=== PATIENT | female | born 1950 | race Caucasian/White ===

== ENCOUNTER 2017-01-25 16:00 | Inpatient (IN) ==
--- NOTE | 2017-01-25 16:53 | Emergency Department Note ---
Disposition Clinical Impression: Cellulitis Qualifiers: Site of cellulitis: extremity Site of cellulitis of extremity: lower extremity Laterality: left Qualified Code(s): L03.116 - Cellulitis of left lower limb UTI (urinary tract infection) Qualifiers: Urinary tract infection type: acute cystitis Hematuria presence: without hematuria Qualified Code(s): N30.00 - Acute cystitis without hematuria Disposition: Admitted As Inpatient Condition: Fair Referrals: Francoise Marcum CNP [Primary Care Provider] - Forms: ED Satisfaction Letter Weakness HPI - General Chief complaint: ED Weakness Stated complaint: WEAKNESS Source: patient Mode of arrival: EMS Limitations: no limitations Nursing Notes Reviewed: Yes Vital Signs Reviewed: Yes - History of Present Illness HPI Narrative: Patient presents to the ED complaining of generalized weakness and increased lower extremity swelling that began yesterday. Her legs are always swollen but seemed to be worse over the past 2 days. She also reports some redness and a splotchy red rash to her left leg. She denies any chest pain or shortness breath. No abdominal pain, nausea, vomiting, diarrhea or constipation. She reports urinary urgency but no frequency or dysuria. She has had a dry cough for the past 2 days as well as some sneezing and rhinorrhea which each of these to her allergies. No sore throat or nasal congestion. Orts chills but no fever noted at home. She is a non-insulin dependent diabetic. States her glucose was 152 at home this morning. She denies any recent travel, sick contacts or recent illness. Denies any tobacco, alcohol or drug use. Pain Scale: 5 - Related Data Home Medications Medication Instructions Recorded Confirmed Allopurinol [Zyloprim] 300 mg PO DAILY 09/30/16 01/25/17 Brimonidine Tartrate/Timolol 5 ml OP BID 09/30/16 01/25/17 [Combigan Eye Drops] Clotrimazole 1% CRM [Lotrimin 1%] 1 appl TP BID 09/30/16 01/25/17 Enalapril Maleate [Vasotec] 20 mg PO BID 09/30/16 01/25/17 Furosemide [Lasix] 40 mg PO BID 09/30/16 01/25/17 Latanoprost [Xalatan] 2.5 ml OP HS 09/30/16 01/25/17 Lovastatin [Altoprev] 40 mg PO DAILY 09/30/16 01/25/17 Metoprolol [Lopressor] 100 mg PO DAILY 09/30/16 01/25/17 Nystatin POWDER [Nystop] 1 appl TP TID 09/30/16 01/25/17 Potassium Chloride [K-Tab ER] 20 meq PO BID 09/30/16 01/25/17 Ranitidine HCl [Zantac] 300 mg PO DAILY 09/30/16 01/25/17 Vitamin B Complex 1 each PO DAILY 09/30/16 01/25/17 amLODIPine [Norvasc] 5 mg PO DAILY 09/30/16 01/25/17 glipiZIDE [Glucotrol] 5 mg PO BIDWM 09/30/16 01/25/17 Allergies Allergy/AdvReac Type Severity Reaction Status Date / Time No Known Allergies Allergy Verified 01/25/17 16:07 Constitutional: Reports: chills, weakness (generalized). Denies: fever, weight change Eyes: Denies: eye pain, eye discharge, vision change ENT ED: Denies: ear pain, throat pain, dental pain, hearing loss, epistaxis, congestion, dysphagia Cardiovascular: Reports: edema. Denies: chest pain, palpitations, dyspnea on exertion, syncope Respiratory: Reports: cough. Denies: dyspnea, wheezes, hemoptysis, stridor, sputum production Gastrointestinal: Denies: abdominal pain, nausea, vomiting, diarrhea, constipation, hematemesis, melena, hematochezia Genitourinary: Reports: as per HPI, urgency. Denies: dysuria, frequency, hematuria, discharge Musculoskeletal: Reports: as per HPI Integumentary: Reports: as per HPI, rash. Denies: abrasion, lesions Neurological: Denies: headache, weakness, numbness, paresthesias, confusion, abnormal gait, vertigo Psychiatric: Denies: anxiety, depression, suicidal thoughts, homicidal thoughts , auditory hallucinations, visual hallucinations Endocrine: Denies: fatigue Hematological/Lymphatic: Denies: easy bleeding, easy bruising Allergic/Immunologic: Denies: facial swelling, urticaria Past Medical History - Past Medical History Medical history: Reports: arthritis, diabetes, glaucoma, hyperlipidemia, hypertension Surgical history: Reports: appendectomy, cholecystectomy, hysterectomy Psychiatric history: Reports: other BUSINESS MANAGEMENT ANALYST history: Reports: no BUSINESS MANAGEMENT ANALYST history - Social History Smoking Status: Never smoker Smokeless Tobacco Status: No Alcohol use: Reports: none Drug use: Reports: none Physical Exam - General Limitations: no limitations General appearance: alert, in no apparent distress, obese - Head Head exam: atraumatic, normocephalic, normal inspection - Eye Eye exam: Present: normal appearance, PERRL, EOMI - ENT ENT exam: normal exam, normal oropharynx, mucous membranes moist - Neck Neck exam: Present: normal inspection, full ROM, trachea midline - Chest Chest inspection: Present: normal inspection, symmetric chest wall rise - Respiratory Respiratory exam: Present: normal lung sounds bilaterally - Cardiovascular Cardiovascular exam: Present: regular rate, normal rhythm, normal heart sounds - Abdominal Exam Abdominal exam: Present: soft, Non-Tender, normal bowel sounds. Absent: tenderness, distention, guarding, rebound, rigidity - Extremities Exam Extremities exam: Present: normal inspection, full ROM, pedal edema (2+ bilaterally to upper shins). Absent: tenderness - Expanded Lower Extremity Exam Hip/Pelvis exam: Present: normal inspection, full ROM Upper leg exam: Present: normal inspection, full ROM Knee exam: Present: normal inspection, full ROM Lower leg exam: Present: full ROM, swelling (bilaterally) Ankle exam: Present: normal inspection, full ROM Foot/toe exam: Present: normal inspection, full ROM Neurovascular/Tendon exam: Absent: motor deficit, sensory deficit, tendon deficit - Back Exam Back exam: Present: normal inspection, full ROM. Absent: tenderness, CVA tenderness (R), CVA tenderness (L) - Neurological Exam Neurological exam: Present: alert, oriented X3 - Skin Skin exam: Present: other - Expanded Skin Exam Type of lesion: Present: other Distribution: LLE (erythema, scattered small red macular rash, warmth) Course Course Narrative: Patient presents to the ED complaining of generalized weakness and increasing lower extremity edema over the past 2 days. She was febrile 100.1 on arrival. Remainder vitals were normal. Low suspicion for any diabetic complication given her a.m. glucose readings. She does have some lower extremity edema and takes Lasix on a daily basis. No history of heart disease but will check chest x-ray and labs, including BNP. EKG on arrival shows normal sinus rhythm. Regarding her legs she also has redness and warmth of the left lower extremity with a rash concerning for cellulitis. She will be given Tylenol for her low- grade fever. - Reevaluation(s) Reevaluation #1: Chest x-ray was normal. BMP was only minimally elevated. I do not feel this represents CHF but rather just worsening of her chronic lower extremity edema. Urinalysis shows evidence of a UTI. CBC shows leukocytosis with left shift. She is also slight bump in her creatinine. Given 2 sources of infection with leukocytosis and low-grade fever feel patient would benefit from admission for IV antibiotics given her comorbidities. Discussed all test results and plan for admission with the patient and her guardian and they are in agreement. I have spoken to the hospitalist, Dr. Pacheco, who has agreed to accept the patient. She will be started on IV antibiotics as well as gentle hydration. Vital Signs Temperature 100.1 F H 01/25/17 16:09 Pulse Rate 104 01/25/17 16:09 Respiratory Rate 16 01/25/17 16:09 Blood Pressure 136/85 01/25/17 16:09 O2 Sat by Pulse Oximetry 100 01/25/17 16:09 Temperature 101.2 F H 01/25/17 19:22 Pulse Rate 104 01/25/17 16:09 Respiratory Rate 16 01/25/17 16:09 Blood Pressure 136/85 01/25/17 16:09 O2 Sat by Pulse Oximetry 100 01/25/17 16:09 Oxygen Delivery Oxygen Delivery Room Air Weakness - Differential Diagnosis Differential Diagnosis: Likely: sepsis/infection - Medical Records Medical records reviewed: Yes I reviewed the patient's medical records. - Lab Data Lab results reviewed: Yes I reviewed the patient's lab results. Result diagrams: 01/25/17 18:15 01/25/17 18:15 Lab Results 01/25/17 01/25/17 01/25/17 Range/Units 17:00 18:15 18:15 WBC 14.3 H (4.3-11.1) K/mcL RBC 3.86 (3.82-4.97) M/mcL Hgb 11.3 L (11.5-15.4) g/dL Hct 34.4 L (35.3-44.9) % MCV 89.1 (83.0-100.0) fL MCH 29.3 (28.0-33.3) pg MCHC 32.8 (31.6-35.5) g/dL RDW 14.6 H (11.5-14.5) % Plt Count 262 (140-400) K/mcL MPV 9.8 (9.4-12.4) fL Immature Gran % 1.2 (0-4) % Seg Neutrophils % 78.4 % Lymphocytes % 14.3 % Monocytes % 5.7 % Eosinophils % 0.1 % Basophils % 0.3 % Neutrophils # 11.2 H (1.6-8.9) K/mcL Lymphocytes # 2.0 (0.6-4.6) K/mcL Monocytes # 0.8 (0.0-1.3) K/mcL Eosinophils # 0.0 (0.0-0.6) K/mcL Basophils # 0.0 (0.0-0.2) K/mcL Nucleated RBCs/100 WBC 0.1 H (0) /100 WBC VBG Lactic Acid (0.5-2.2) mmol/L Sodium 136 (136-145) mEq/L Potassium 4.1 (3.5-4.5) mEq/L Chloride 99 (98-109) mEq/L Carbon Dioxide 22 (19-29) mEq/L BUN 18 (7-20) mg/dL Creatinine 1.45 H (0.57-1.11) mg/dL Est GFR ( Amer) 44 L (> 60) Est GFR (Non-Af Amer) 36 L (> 60) BUN/Creatinine Ratio 12 (6-26) Glucose 133 H (70-99) mg/dL Calculated Osmolality 286 (280-300) Calcium 9.7 (8.6-10.8) mg/dL Total Bilirubin (0.2-1.2) mg/dL Direct Bilirubin (0.0-0.5) mg/dL Indirect Bilirubin (0.0-1.2) mg/dL AST (5-34) Units/L ALT (0-55) Units/L Alkaline Phosphatase (38-126) Units/L B-Natriuretic Peptide (0-100) pg/mL Serum Total Protein (6.0-8.3) g/dL Albumin (3.5-5.0) g/dL Globulin (2.4-3.5) g/dL Albumin/Globulin Ratio (1.1-2.2) Urine Color Yellow (Yellow) Urine Clarity Slightly Cloudy A (Clear) Urine pH 6.0 (5.0-8.0) pH Units Ur Specific [place] <= 1.005 L (1.010-1.025) Urine Protein 30 H (Neg-Trace) mg/dL Urine Glucose (UA) Normal (Normal) mg/dL Urine Ketones Negative (Negative) mg/dL Urine Blood Small H (Negative) Urine Nitrite Negative (Negative) Urine Bilirubin Negative (Negative) Urine Urobilinogen Normal (Normal) mg/dL Ur Leukocyte Esterase Moderate H (Negative) Urine Microscopic RBC 0-3 (0-3) per hpf Urine Microscopic WBC 15-30 H (0-3) per hpf Ur Squamous Epith Cells Few (None-Few) per lpf Ur Transition Epith Cell Few (None-Few) per hpf Urine Bacteria Many H (None-Few) per hpf Ur Culture Indicated? YES A (NO) 01/25/17 01/25/17 01/25/17 Range/Units 18:15 18:15 19:12 WBC (4.3-11.1) K/mcL RBC (3.82-4.97) M/mcL Hgb (11.5-15.4) g/dL Hct (35.3-44.9) % MCV (83.0-100.0) fL MCH (28.0-33.3) pg MCHC (31.6-35.5) g/dL RDW (11.5-14.5) % Plt Count (140-400) K/mcL MPV (9.4-12.4) fL Immature Gran % (0-4) % Seg Neutrophils % % Lymphocytes % % Monocytes % % Eosinophils % % Basophils % % Neutrophils # (1.6-8.9) K/mcL Lymphocytes # (0.6-4.6) K/mcL Monocytes # (0.0-1.3) K/mcL Eosinophils # (0.0-0.6) K/mcL Basophils # (0.0-0.2) K/mcL Nucleated RBCs/100 WBC (0) /100 WBC VBG Lactic Acid 2.8 H (0.5-2.2) mmol/L Sodium (136-145) mEq/L Potassium (3.5-4.5) mEq/L Chloride (98-109) mEq/L Carbon Dioxide (19-29) mEq/L BUN (7-20) mg/dL Creatinine (0.57-1.11) mg/dL Est GFR ( Amer) (> 60) Est GFR (Non-Af Amer) (> 60) BUN/Creatinine Ratio (6-26) Glucose (70-99) mg/dL Calculated Osmolality (280-300) Calcium (8.6-10.8) mg/dL Total Bilirubin 0.3 (0.2-1.2) mg/dL Direct Bilirubin 0.1 (0.0-0.5) mg/dL Indirect Bilirubin 0.2 (0.0-1.2) mg/dL AST 18 (5-34) Units/L ALT 21 (0-55) Units/L Alkaline Phosphatase 75 (38-126) Units/L B-Natriuretic Peptide 141 H (0-100) pg/mL Serum Total Protein 7.5 (6.0-8.3) g/dL Albumin 3.3 L (3.5-5.0) g/dL Globulin 4.2 H (2.4-3.5) g/dL Albumin/Globulin Ratio 0.8 L (1.1-2.2) Urine Color (Yellow) Urine Clarity (Clear) Urine pH (5.0-8.0) pH Units Ur Specific [place] (1.010-1.025) Urine Protein (Neg-Trace) mg/dL Urine Glucose (UA) (Normal) mg/dL Urine Ketones (Negative) mg/dL Urine Blood (Negative) Urine Nitrite (Negative) Urine Bilirubin (Negative) Urine Urobilinogen (Normal) mg/dL Ur Leukocyte Esterase (Negative) Urine Microscopic RBC (0-3) per hpf Urine Microscopic WBC (0-3) per hpf Ur Squamous Epith Cells (None-Few) per lpf Ur Transition Epith Cell (None-Few) per hpf Urine Bacteria (None-Few) per hpf Ur Culture Indicated? (NO) - Radiology Data Radiology results reviewed: Yes I reviewed the patient's radiology results. ITS Impressions Chest X-Ray 01/25/17 17:55 IMPRESSION: No acute process. D/ / Selvin Duran MD / Selvin Duran MD Interpreting Provider: Selvin Duran MD - EKG Data EKG attestation: Yes I reviewed and interpreted this EKG. EKG shows normal: sinus rhythm Rate: normal Rhythm: NSR [place]/QRS: normal Interpretation: no acute changes, normal EKG
[2017-01-25 17:08] LABS: Bilirubin,Urine Negative (Negative); Blood,Urine Small (Negative); Clarity,Urine Slightly Cloudy (Clear); Color,Urine Yellow (Yellow); Glucose,Urine (UA) Normal (Normal); Ketones,Urine Negative (Negative); Leukocyte Esterase,Urine Moderate (Negative); Nitrite,Urine Negative (Negative); Protein,Urine 30 mg/dL (Neg-Trace); Specific Gravity,Urine <= 1.005 (1.010-1.025); Urobilinogen,Urine Normal (Normal)
[2017-01-25 17:15] LABS: Bacteria,Urine Many per hpf (None-Few); RBC,Urine 0-3 per hpf (0-3); Squamous Epithelial Cell,Urine Few per lpf (None-Few); Transitional Epi Cells,Urine Few per hpf (None-Few); WBC,Urine 15-30 per hpf (0-3)
[2017-01-25] MEDS ORDERED: Acetaminophen 325 MG TABLET PO ONE (17:58)
[2017-01-25 18:25] LABS: Basophils % 0.3 %; Eosinophils % 0.1 %; Hematocrit 34.4 % (35.3-44.9); Hemoglobin 11.3 g/dL (11.5-15.4); Immature Granulocytes % 1.2 % (0-4); Lymphocytes % 14.3 %; Mean Corpuscular HGB Conc 32.8 g/dL (31.6-35.5); Mean Corpuscular Hemoglobin 29.3 pg (28.0-33.3); Mean Corpuscular Volume 89.1 fL (83.0-100.0); Mean Platelet Volume 9.8 fL (9.4-12.4); Monocytes # 0.8 K/mcL (0.0-1.3); Monocytes % 5.7 %; Neutrophils # 11.2 K/mcL (1.6-8.9); Nucleated Red Blood Cells 0.1 /100 WBC (0); Platelet Count 262 K/mcL (140-400); Red Blood Count 3.86 M/mcL (3.82-4.97); Red Cell Distribution Width 14.6 % (11.5-14.5); Segmented Neutrophils % 78.4 %
[2017-01-25 18:39] LABS: Calcium 9.7 mg/dL (8.6-10.8); Potassium 4.1 mEq/L (3.5-4.5)
[2017-01-25 18:42] LABS: Albumin 3.3 g/dL (3.5-5.0); Albumin/Globulin Ratio 0.8 (1.1-2.2); Bilirubin,Direct 0.1 mg/dL (0.0-0.5); Bilirubin,Indirect 0.2 mg/dL (0.0-1.2); Bilirubin,Total 0.3 mg/dL (0.2-1.2); Globulin 4.2 g/dL (2.4-3.5); Total Protein 7.5 g/dL (6.0-8.3)
[2017-01-25] MEDS ORDERED: 0.9 % Sodium Chloride 1,000 ML IVC SCH (19:30)
[2017-01-25] MEDS ORDERED: Naloxone 0.4 MG/ML INJ IVP PRN ×2 (19:31→21:55)
[2017-01-25] MEDS ORDERED: Acetaminophen 325 MG TABLET PO PRN ×2 (19:31→21:55)
[2017-01-25] MEDS ORDERED: Dextrose Gel 15 GM PO PRN ×4 (19:32→21:55)
[2017-01-25] MEDS ORDERED: *HR* Dextrose 50 % in Water (Syg) 50 ML SYRINGE IVP PRN ×2 (19:32→21:55)
[2017-01-25] MEDS ORDERED: D5% in Water 1,000 ML IVC PRN ×2 (19:32→21:55)
[2017-01-25] MEDS ORDERED: Furosemide 40 MG TABLET PO SCH (21:55)
[2017-01-25] MEDS: 0.9 % Sodium Chloride 1,000 ML IVC SCH (23:12)
[2017-01-25] MEDS: Clindamycin 600 MG/50 ML 600 MG/50 ML IV.SOLN IVPB SCH (23:13)
--- NOTE | 2017-01-25 23:21 | Internal Med History&Physical ---
Date of Encounter: 01/25/17 Time of Encounter: 23:15 Assessment and Plan (1) Cellulitis of left lower extremity Current visit: Yes Status: Acute Cellulitis of left lower extremity, this may be related to her recent ingrown toenail may have seeded the infection. She is febrile and leukocytosis. Blood cultures have been sent. She has been started on Cipro in the ER. We will also get a venous ultrasound to rule out occult DVT because of lower extremity swelling and risk factors. I anticipate that she will be here more than 2 midnights and so she will be admitted as she is not a candidate for outpatient treatment of this. (2) Possible urinary tract infection Current visit: Yes Status: Acute No urinary symptoms, however she does have fever and urine positive with white blood cells. Urine culture was sent. Cipro was already started. (3) Diabetes mellitus Current visit: Yes Status: Acute History diabetes mellitus. Her last glycohemoglobin was 7.5% we will continue to monitor. Qualifiers: Diabetes mellitus type: type 2 Diabetes mellitus complication status: with kidney complications Diabetes mellitus complication detail: with chronic kidney disease Diabetes mellitus buttermilk drier operator insulin use: without buttermilk drier operator use Qualified Code(s): E11.22 - Type 2 diabetes mellitus with diabetic chronic kidney disease; N18.3 - Chronic kidney disease, stage 3 (moderate) (4) Hypertension Current visit: Yes Status: Chronic History chronic hypertension. Blood pressure control. Maintain current medication. Qualifiers: Hypertension type: essential hypertension Qualified Code(s): I10 - Essential (primary) hypertension (5) Chronic kidney disease Current visit: Yes Status: Acute Chronic kidney disease likely related to hypertension and diabetes. We will continue to monitor. Qualifiers: Chronic kidney disease stage: stage 3 (moderate) Qualified Code(s): N18.3 - Chronic kidney disease, stage 3 (moderate) (6) Obesity Current visit: Yes Status: Chronic Qualifiers: Obesity type: unspecified obesity type Obesity classification: unspecified obesity classification Serious obesity comorbidity presence: without serious comorbidity Qualified Code(s): E66.9 - Obesity, unspecified (7) Mental handicap Current visit: Yes Status: Chronic She appears she is able to take care of herself with help of her sister in the home. She also has a caregiver guardian that lives nearby. (8) DVT prophylaxis Current visit: Yes Status: Acute We will start Lovenox for DVT prophylaxis. Internal Medicine - H&P: HPI Chief complaint: I just don't feel right and my legs are swollen Admitted From: Emergency Dept Plans for Post Hospital Care: Home History of present illness: Ms. Marin is a 66 year old female with a history of mental handicap, diabetes, hypertension, anemia is admitted from the emergency room after having been evaluated for lower extremity swelling redness and pain. She states that yesterday she started shaking and just did not feel well. Her legs started to swell also. This more she thought she was feeling better, then this afternoon she was not feeling well she developed a dry cough and noticed her legs were getting worse, the left was worse than the right. The left has gotten reddened. She continued chills and difficulties with walking and had to resort to the use of her walker. She denied any chest pain, palpitations, dyspnea, GI or symptoms. In the emergency room she was found to have redness and swelling of the lower extremities, the left worse than the right, developed a fever 101.4, leukocytosis and felt to have cellulitis of the left lower extremity and inability to take care of herself at home with this. I spoke with her caregiver guardian, Arelis Martinez, who helped with the additional information. She told me that the patient has just not been acting right lately, decreased ADLs and inability to be ambulating independently since this happened. She also had ingrown toenail left great toe and street railway line installer made a house call and "dug out" ingrown toenail and the patient was soaking her foot and putting on Bactroban ointment. Past Med Surg Social Fam HX - Past Medical History Source: patient, obtained from family Medical history: arthritis, diabetes, glaucoma, hyperlipidemia, hypertension, other (Gout, mental handicap) Psychiatric history: other (Mental handicap) - Past Surgical History Surgical History: appendectomy, cholecystectomy, hysterectomy, other (All of her teeth have been removed) - Social History Smoking Status: Never smoker Smokeless Tobacco Status: No Alcohol use: none Drug use: none Occupational status: disabled (Mental handicap) Current living situation: With Family (Lives with her sister who also has a mental handicap. A guardian lives nearby) Activity Level: Uses cane/walker Recent Out of Country Travel Within the Last 8 Weeks: No Exposure or Possible Exposure to Illness During Travel: No - Family History Mother Living Status: Age at : 54 Cause of : "Cancer" Father Living Status: Age at : 52 Cause of : "Dropsy", heart disease Brother Living Status: Age at : 63 Cause of : Unknown Sister Living Status: Still Living Hx Family Neurologic Disorders: Yes (History of mental handicap and lives with this patient) Internal Medicine - H&P: Meds Allopurinol [Zyloprim] 300 mg PO DAILY 09/30/16 [History] Brimonidine Tartrate/Timolol [Combigan Eye Drops] 5 ml OP BID 09/30/16 [History] Clotrimazole 1% CRM [Lotrimin 1%] 1 appl TP BID 09/30/16 [History] Enalapril Maleate [Vasotec] 20 mg PO BID 09/30/16 [History] Furosemide [Lasix] 40 mg PO BID 09/30/16 [History] Latanoprost [Xalatan] 2.5 ml OP HS 09/30/16 [History] Lovastatin [Altoprev] 40 mg PO DAILY 09/30/16 [History] Metoprolol [Lopressor] 100 mg PO DAILY 09/30/16 [History] Nystatin POWDER [Nystop] 1 appl TP TID 09/30/16 [History] Potassium Chloride [K-Tab ER] 20 meq PO BID 09/30/16 [History] Ranitidine HCl [Zantac] 300 mg PO DAILY 09/30/16 [History] Vitamin B Complex 1 each PO DAILY 09/30/16 [History] amLODIPine [Norvasc] 5 mg PO DAILY 09/30/16 [History] glipiZIDE [Glucotrol] 5 mg PO BIDWM 09/30/16 [History] Allergies No Known Allergies Allergy (Verified 01/25/17 16:07) - Constitutional Constitutional: anorexia, fever(s), lethargy, malaise, weakness, no falls, no night sweats - EENT Eyes: no loss of vision Ears: no ear discharge, no ear pain Nose, mouth and throat: no dry mouth, no neck pain, no sore throat - Cardiovascular Cardiovascular ROS IM: no chest pain, no diaphoresis, no dyspnea, no irregular heart rhythm, no lightheadedness, no palpitations - Respiratory Respiratory: cough (Dry cough. No hemoptysis.), no dyspnea, no hemoptysis, no dyspnea on exertion, no wheezing, no chest congestion - Gastrointestinal Gastrointestinal: no change in bowel habits, no change in stool character, no constipation, no diarrhea, no hematemesis, no nausea, no vomiting - Genitourinary Genitourinary: no difficulty urinating, no urinary frequency, no urinary hesitancy, no urinary incontinence, no urinary urgency, no vaginal discharge Menstruation: post hysterectomy - Musculoskeletal Musculoskeletal ROS IM: no muscle cramps, no muscle weakness, no neck pain - Integumentary Integumentary IM: as per HPI - Neurological Neurological ROS: no dizziness, no focal weakness, no loss of vision - Psychiatric Psychiatric: as per HPI (Her caregiver/guardian states that she has "mental retardation" she lives with her sister in a mobile home and both have mental handicap) - Constitutional Vitals: Temp Pulse Resp BP Pulse Ox 99.9 F H 93 18 101/63 94 01/25/17 21:43 01/25/17 21:30 01/25/17 21:43 01/25/17 21:43 01/25/17 21:30 General appearance: Present: A&O X 3, no acute distress, obese, answers questions appropriately - Eye Eye exam: Present: EOMI, PERRL. Absent: scleral icterus Additional comments: has very droopy eyelids - ENT ENT exam: Present: mucous membranes moist, TM's normal bilaterally. Absent: normal exam (She is edentulous) - Neck Neck exam general surgery: Absent: lymphadenopathy, tenderness, thyromegaly Additional comments: She has a very full adipose neck which makes it hard to evaluate - Respiratory Respiratory exam: Present: CTAB. Absent: respiratory distress, wheezes - Cardiovascular Cardiovascular exam: Present: RRR, +S1, +S2. Absent: systolic murmur - GI/Abdominal GI/Abdominal exam: Present: soft, no peritoneal signs. Absent: guarding, hepatomegaly, mass, tenderness Additional comments: She is very obese and hard to evaluate further - Extremities Exam Additional comments: Both lower extremities are swollen and and edematous dorsum of both feet. She has an area on the right mid tibial region which has chronic hyperpigmentation/ venous insufficiency changes. There is no tenderness. No skin breakdown. Left lower extremity is markedly enlarged, she has redness mainly confluent with some telangiectasia/petechial changes noted medially. This involves nearly the lower three fourths of the left lower leg. She has swelling over the dorsum of the foot but is not red or hot. Negative Homans sign. No calf tenderness. No cords. No skin breakdown or bruising. The left great toenail is covered/bandaged. I removed it. Status post ingrown toenail treatment without any purulent drainage or foul odor. It is not particularly swollen. - Back Exam Back exam: Absent: CVA tenderness (L), CVA tenderness (R), vertebral tenderness - Neurological Exam Neurological exam: Present: alert, CN II-XII intact, oriented X3. Absent: facial droop, speech deficit Additional comments: Speech and mentation appear to be somewhat slowed but pleasant. I did not do a full Mini-Mental Status Examination. She is oriented to day, date, address, birthdate, etc. - Skin Additional comments: As an examination of lower extremities Internal Med - H&P Results - Labs CBC & Chem 7: 01/25/17 18:15 01/25/17 18:15 Labs: Labs have been reviewed. Leukocytosis noted. Chronic kidney disease noted. Minimally elevated glucose. Urinalysis reviewed and she does have white blood cells seen. - VTE Reasons for not Prescribing Prophylaxis: Treatment not Indicated - Low risk for VTE
[2017-01-25] MEDS: (Combigan 0.2%-0.5% Eye) OP SCH (23:23)
[2017-01-25] MEDS: Nystatin POWDER 30 GM BOTTLE TP SCH (23:36)
[2017-01-25] MEDS: Latanoprost 2.5 ML BOTTLE BOTH EYES SCH (23:36)
[2017-01-25] MEDS: Lisinopril 20 MG TABLET PO SCH (23:37)
[2017-01-26] MEDS ORDERED: Clindamycin 600 MG/50 ML 600 MG/50 ML IV.SOLN IVPB SCH
[2017-01-26] MEDS: *HR* Enoxaparin 40 MG/0.4 ML SYRINGE SQ SCH (05:34)
[2017-01-26 05:38] LABS: Basophils # 0.1 K/mcL (0.0-0.2); Basophils % 0.5 %; Eosinophils # 0.1 K/mcL (0.0-0.6); Eosinophils % 0.8 %; Hematocrit 30.6 % (35.3-44.9); Hemoglobin 10.2 g/dL (11.5-15.4); Immature Granulocytes % 0.8 % (0-4); Lymphocytes # 1.9 K/mcL (0.6-4.6); Mean Corpuscular HGB Conc 33.3 g/dL (31.6-35.5); Monocytes # 0.8 K/mcL (0.0-1.3); Monocytes % 7.8 %; Neutrophils # 7.4 K/mcL (1.6-8.9); Platelet Count 216 K/mcL (140-400); Red Cell Distribution Width 14.6 % (11.5-14.5); Segmented Neutrophils % 72.1 %
[2017-01-26 05:40] LABS: INR 1.1; Prothrombin Time 11.9 Seconds (9.4-12.1)
[2017-01-26 05:43] LABS: Activated Partial Thrombo Time 28.2 Seconds (26.0-36.0)
[2017-01-26 05:50] LABS: Calcium 8.9 mg/dL (8.6-10.8)
--- NOTE | 2017-01-26 06:43 | Internal Med Progress Note ---
Date of Encounter: 01/26/17 Time of Encounter: 06:42 - Assessment and plan (1) Cellulitis of left lower extremity Current Visit: Yes Status: Acute Assessment and plan: No fever today. White blood cell count is improving. Likely the cellulitis is improving. Continue the IV antibiotic. (2) Possible urinary tract infection Current Visit: Yes Status: Acute Assessment and plan: Continue antibiotics until culture is back and then adjust (3) Diabetes mellitus Current Visit: Yes Status: Acute Assessment and plan: Sugars are under adequate control. Qualifiers: Diabetes mellitus type: type 2 Diabetes mellitus complication status: with kidney complications Diabetes mellitus complication detail: with chronic kidney disease Diabetes mellitus intermodal customer service insulin use: without detention use Chronic kidney disease stage: stage 3 (moderate) Qualified Code(s): E11.22 - Type 2 diabetes mellitus with diabetic chronic kidney disease; N18.3 - Chronic kidney disease, stage 3 (moderate) (4) Hypertension Current Visit: Yes Status: Chronic Assessment and plan: blood pressure is under good control. Qualifiers: Hypertension type: essential hypertension Qualified Code(s): I10 - Essential (primary) hypertension (5) Chronic kidney disease Current Visit: Yes Status: Acute Assessment and plan: Chronic kidney disease is improved with IV fluids. Qualifiers: Chronic kidney disease stage: stage 3 (moderate) Qualified Code(s): N18.3 - Chronic kidney disease, stage 3 (moderate) (6) Obesity Current Visit: Yes Status: Chronic Qualifiers: Obesity type: unspecified obesity type Obesity classification: unspecified obesity classification Serious obesity comorbidity presence: without serious comorbidity Qualified Code(s): E66.9 - Obesity, unspecified (7) Mental handicap Current Visit: Yes Status: Chronic (8) DVT prophylaxis Current Visit: Yes Status: Acute - Subjective Interval history: Patient feels better today. She denies a cardiac respiratory symptoms. She slept well last night. Less pain in her lower extremity. No fever or chills. - Constitutional Vitals: Temp Pulse Resp BP Pulse Ox 99.3 F 93 18 111/59 93 01/26/17 04:00 01/26/17 04:00 01/26/17 04:00 01/26/17 04:00 01/26/17 04:00 General appearance: Present: A&O X 3, no acute distress, obese, answers questions appropriately - Respiratory Respiratory exam: Present: CTAB - Cardiovascular Cardiovascular exam: Present: RRR, +S1, +S2 - GI/Abdominal GI/Abdominal exam: Present: soft, no peritoneal signs. Absent: tenderness - Extremities Exam Additional comments: Lower extremity still have edema. Left lower extremity shows slightly less redness but has not receded in extent yet. No open lesions. No linear streaks. Internal Medicine: Result - Labs CBC & Chem 7: 01/26/17 05:25 01/26/17 05:25 Labs: Short CBC 01/26/17 Range/Units 05:25 WBC 10.3 (4.3-11.1) K/mcL Hgb 10.2 L (11.5-15.4) g/dL Hct 30.6 L (35.3-44.9) % Plt Count 216 (140-400) K/mcL Neutrophils # 7.4 (1.6-8.9) K/mcL BMP 01/26/17 05:25 Sodium 138 Potassium 4.0 Chloride 104 Carbon Dioxide 20 BUN 16 Creatinine 1.27 H Glucose 140 H Calcium 8.9 White blood cell count is much better. Creatinine is better. - ABG Interpretation ABG results: PT/INR, D-dimer PT 11.9 Seconds (9.4-12.1) 01/26/17 05:25 - VTE Reasons for not Prescribing Prophylaxis: Treatment not Indicated - Low risk for VTE Consult Discharge Plan - Plan Referrals: Francoise Marcum, WINDOW UNIT AIR CONDITIONING MECHANIC [Primary Care Provider] -
[2017-01-26] MEDS ORDERED: Insulin LISPRO 300 UNITS/3 ML VIAL SQ SCH (07:30)
[2017-01-26] MEDS: 0.9 % Sodium Chloride 1,000 ML IVC SCH ×2 (08:18→19:15)
[2017-01-26] MEDS: Insulin LISPRO 300 UNITS/3 ML VIAL SQ SCH ×3 (08:20→17:00)
[2017-01-26] MEDS: Clindamycin 600 MG/50 ML 600 MG/50 ML IV.SOLN IVPB SCH ×2 (08:21→16:46)
[2017-01-26] MEDS: Furosemide 40 MG/4 ML VIAL IVP SCH ×2 (08:22→21:58)
[2017-01-26] MEDS: Famotidine 20 MG TABLET PO SCH (08:22)
[2017-01-26] MEDS: Metoprolol 100 MG TABLET PO SCH (08:22)
[2017-01-26] MEDS: *HR* GlipiZIDE 5 MG TABLET PO SCH ×2 (08:23→16:57)
[2017-01-26] MEDS: Lisinopril 20 MG TABLET PO SCH ×2 (08:23→21:59)
[2017-01-26] MEDS: Vitamin B Complex/Vit C/Vit E 1 EACH TABLET PO SCH (08:23)
[2017-01-26] MEDS: amLODIPine 5 MG TABLET PO SCH (08:23)
[2017-01-26] MEDS: (Combigan 0.2%-0.5% Eye) OP SCH ×2 (08:24→22:01)
[2017-01-26] MEDS: Nystatin POWDER 30 GM BOTTLE TP SCH ×3 (08:24→21:58)
--- NOTE | 2017-01-26 17:25 | Event Note ---
Date of Encounter: 01/26/17 Time of Encounter: 17:24 Reevaluated patient tonight. She sitting up in a chair. She is eating. She feels better. No fever. Vital stable. Overall she looks better. Lungs are clear. Heart without murmur and has regular rate. Left lower extremity seems to be less intensely red. No open lesions. Continue same treatment.
[2017-01-26] MEDS: Latanoprost 2.5 ML BOTTLE BOTH EYES SCH (22:01)
[2017-01-27] MEDS: Clindamycin 600 MG/50 ML 600 MG/50 ML IV.SOLN IVPB SCH ×3 (00:28→17:39)
[2017-01-27] MEDS: 0.9 % Sodium Chloride 1,000 ML IVC SCH (04:18)
[2017-01-27] MEDS: *HR* Enoxaparin 40 MG/0.4 ML SYRINGE SQ SCH (06:12)
[2017-01-27] MEDS: Insulin LISPRO 300 UNITS/3 ML VIAL SQ SCH ×3 (08:12→17:38)
[2017-01-27] MEDS: Lisinopril 20 MG TABLET PO SCH ×2 (08:24→22:52)
[2017-01-27] MEDS: *HR* GlipiZIDE 5 MG TABLET PO SCH ×2 (08:24→17:38)
[2017-01-27] MEDS: Vitamin B Complex/Vit C/Vit E 1 EACH TABLET PO SCH (08:24)
[2017-01-27] MEDS: Metoprolol 100 MG TABLET PO SCH (08:24)
[2017-01-27] MEDS: Famotidine 20 MG TABLET PO SCH (08:25)
[2017-01-27] MEDS: amLODIPine 5 MG TABLET PO SCH (08:25)
[2017-01-27] MEDS: Furosemide 40 MG/4 ML VIAL IVP SCH ×2 (08:25→22:51)
[2017-01-27] MEDS: Nystatin POWDER 30 GM BOTTLE TP SCH ×3 (08:26→22:51)
[2017-01-27] MEDS: (Combigan 0.2%-0.5% Eye) OP SCH ×2 (08:26→22:52)
--- NOTE | 2017-01-27 13:28 | Internal Med Progress Note ---
Date of Encounter: 01/27/17 Time of Encounter: 13:30 - Assessment and plan (1) Cellulitis of left lower extremity Current Visit: Yes Status: Acute Assessment and plan: Markedly improved of the cellulitis of the left lower extremity. Afebrile. White blood cell count decreased. Blood cultures negative. Continue the IV antibiotics. Venous Doppler to rule out occult DVT. (2) Possible urinary tract infection Current Visit: Yes Status: Acute Assessment and plan: Culture showed mixed shaq. This was likely an uncathed specimen in the ER. I am not sure we really need to repeat this. The source for fever and infection is likely a cellulitis. (3) Diabetes mellitus Current Visit: Yes Status: Acute Assessment and plan: Blood sugars are under appropriate control. Qualifiers: Diabetes mellitus type: type 2 Diabetes mellitus complication status: with kidney complications Diabetes mellitus complication detail: with chronic kidney disease Diabetes mellitus continuous churn buttermaker insulin use: without halfway use Chronic kidney disease stage: stage 3 (moderate) Qualified Code(s): E11.22 - Type 2 diabetes mellitus with diabetic chronic kidney disease; N18.3 - Chronic kidney disease, stage 3 (moderate) (4) Hypertension Current Visit: Yes Status: Chronic Assessment and plan: Blood pressure is under appropriate control. Qualifiers: Hypertension type: essential hypertension Qualified Code(s): I10 - Essential (primary) hypertension (5) Chronic kidney disease Current Visit: Yes Status: Acute Qualifiers: Chronic kidney disease stage: stage 3 (moderate) Qualified Code(s): N18.3 - Chronic kidney disease, stage 3 (moderate) (6) Obesity Current Visit: Yes Status: Chronic Qualifiers: Obesity type: unspecified obesity type Obesity classification: unspecified obesity classification Serious obesity comorbidity presence: without serious comorbidity Qualified Code(s): E66.9 - Obesity, unspecified (7) Mental handicap Current Visit: Yes Status: Chronic (8) DVT prophylaxis Current Visit: Yes Status: Acute - Subjective Interval history: Patient denies any chest pain, dyspnea, abdominal pain. Lower extremities are not painful for her. She is eating and drinking well. Bowels and bladder are working well. - Constitutional Vitals: Temp Pulse Resp BP Pulse Ox 97.6 F 70 14 104/65 98 01/27/17 11:30 01/27/17 11:30 01/27/17 11:30 01/27/17 11:30 01/27/17 11:30 General appearance: Present: A&O X 3, no acute distress, obese, answers questions appropriately - Respiratory Respiratory exam: Present: CTAB - Cardiovascular Cardiovascular exam: Present: distant heart sounds, RRR, +S1, +S2. Absent: systolic murmur - GI/Abdominal Additional comments: Morbidly obese but no liver or spleen enlargement or pulsatile masses and no guarding or rebound rigidity - Extremities Exam Additional comments: Very little enlarged lower extremities, left worse than the right. Good capillary refill and perfusion. The hyperpigmented area on the right anterior bartlett is fading. Left lower leg that showeds the diffuse redness is markedly improved. It is now more localized to an area approximately 8 cm in diameter in the mid anterior bartlett. She still has the capillary/telangiectasia/ papule changes on the posterior thigh there is no skin breakdown. It is not tender. Left great toenail still bandaged Internal Medicine: Result - Labs CBC & Chem 7: 01/26/17 05:25 01/26/17 05:25 Labs: Blood cultures are negative. Urine culture showed grossly contaminated with normal Shaq - ABG Interpretation ABG results: PT/INR, D-dimer PT 11.9 Seconds (9.4-12.1) 01/26/17 05:25 - VTE Reasons for not Prescribing Prophylaxis: Treatment not Indicated - Low risk for VTE Consult Discharge Plan - Plan Referrals: Francoise Marcum CNP [Primary Care Provider] -
[2017-01-27] MEDS: Latanoprost 2.5 ML BOTTLE BOTH EYES SCH (22:52)
[2017-01-28] MEDS: Clindamycin 600 MG/50 ML 600 MG/50 ML IV.SOLN IVPB SCH ×3 (01:39→16:11)
[2017-01-28] MEDS: *HR* Enoxaparin 40 MG/0.4 ML SYRINGE SQ SCH (05:35)
[2017-01-28 07:16] LABS: Potassium 4.4 mEq/L (3.5-4.5)
[2017-01-28] MEDS: amLODIPine 5 MG TABLET PO SCH (08:45)
[2017-01-28] MEDS: Furosemide 40 MG/4 ML VIAL IVP SCH ×2 (08:45→21:39)
[2017-01-28] MEDS: *HR* GlipiZIDE 5 MG TABLET PO SCH ×2 (08:45→16:13)
[2017-01-28] MEDS: Lisinopril 20 MG TABLET PO SCH ×2 (08:45→21:38)
[2017-01-28] MEDS: Metoprolol 100 MG TABLET PO SCH (08:45)
[2017-01-28] MEDS: Famotidine 20 MG TABLET PO SCH (08:45)
[2017-01-28] MEDS: Vitamin B Complex/Vit C/Vit E 1 EACH TABLET PO SCH (08:45)
[2017-01-28 09:32] LABS: Basophils % 0.4 %; Eosinophils # 0.5 K/mcL (0.0-0.6); Eosinophils % 5.5 %; Hematocrit 30.5 % (35.3-44.9); Hemoglobin 9.8 g/dL (11.5-15.4); Immature Granulocytes % 1.4 % (0-4); Lymphocytes # 2.3 K/mcL (0.6-4.6); Lymphocytes % 24.4 %; Mean Corpuscular HGB Conc 32.1 g/dL (31.6-35.5); Mean Corpuscular Hemoglobin 29.4 pg (28.0-33.3); Mean Corpuscular Volume 91.6 fL (83.0-100.0); Mean Platelet Volume 10.6 fL (9.4-12.4); Monocytes % 11.2 %; Neutrophils # 5.3 K/mcL (1.6-8.9); Platelet Count 264 K/mcL (140-400); Red Blood Count 3.33 M/mcL (3.82-4.97); Red Cell Distribution Width 14.6 % (11.5-14.5); Segmented Neutrophils % 57.1 %
[2017-01-28] MEDS: Nystatin POWDER 30 GM BOTTLE TP SCH ×3 (12:30→21:38)
[2017-01-28] MEDS: (Combigan 0.2%-0.5% Eye) OP SCH ×2 (12:30→21:40)
[2017-01-28] MEDS: Insulin LISPRO 300 UNITS/3 ML VIAL SQ SCH ×2 (12:30→17:02)
[2017-01-28] MEDS: Latanoprost 2.5 ML BOTTLE BOTH EYES SCH (21:39)
--- NOTE | 2017-01-28 23:23 | Internal Med Progress Note ---
Date of Encounter: 01/28/17 Time of Encounter: 23:21 - Assessment and plan (1) Cellulitis of left lower extremity Current Visit: Yes Status: Acute Assessment and plan: Continue cellulitis of left lower extremity. She is afebrile white count is normalizing and overall improving. Would like to see less edema if possible. (2) Possible urinary tract infection Current Visit: Yes Status: Ruled-out Assessment and plan: Mixed shaq. Likely contamination. Doubt the source of her fever. (3) Diabetes mellitus Current Visit: Yes Status: Acute Assessment and plan: Under good control. Qualifiers: Diabetes mellitus type: type 2 Diabetes mellitus complication status: with kidney complications Diabetes mellitus complication detail: with chronic kidney disease Diabetes mellitus penitentiary insulin use: without penitentiary use Chronic kidney disease stage: stage 3 (moderate) Qualified Code(s): E11.22 - Type 2 diabetes mellitus with diabetic chronic kidney disease; N18.3 - Chronic kidney disease, stage 3 (moderate) (4) Hypertension Current Visit: Yes Status: Chronic Assessment and plan: Under good control. Qualifiers: Hypertension type: essential hypertension Qualified Code(s): I10 - Essential (primary) hypertension (5) Chronic kidney disease Current Visit: Yes Status: Acute Assessment and plan: History chronic kidney disease, creatinine has bumped up a bit likely from diuresis. We will decrease her Lasix from twice a day to daily. Qualifiers: Chronic kidney disease stage: stage 3 (moderate) Qualified Code(s): N18.3 - Chronic kidney disease, stage 3 (moderate) (6) Obesity Current Visit: Yes Status: Chronic Qualifiers: Obesity type: unspecified obesity type Obesity classification: unspecified obesity classification Serious obesity comorbidity presence: without serious comorbidity Qualified Code(s): E66.9 - Obesity, unspecified (7) Mental handicap Current Visit: Yes Status: Chronic (8) DVT prophylaxis Current Visit: Yes Status: Acute - Subjective Interval history: She thinks she is doing well. She walked to the shower today. Oral intake is good. She denies a cardiac respiratory symptoms. Pain is under good control. - Constitutional Vitals: Temp Pulse Resp BP Pulse Ox 97.5 F L 80 15 137/94 98 01/28/17 19:25 01/28/17 19:25 01/28/17 19:25 01/28/17 19:25 01/28/17 19:25 General appearance: Present: A&O X 3, no acute distress, obese, answers questions appropriately - Respiratory Respiratory exam: Present: CTAB - Cardiovascular Cardiovascular exam: Present: RRR, +S1, +S2 - GI/Abdominal GI/Abdominal exam: Present: soft. Absent: tenderness - Extremities Exam Additional comments: Lower extremities, the left is worse than right. They are both slowly making improvement. Nontender to palpation. No open areas or oozing. Still a lot of edema. Internal Medicine: Result - Labs CBC & Chem 7: 01/28/17 06:52 01/28/17 06:52 Labs: Short CBC 01/28/17 Range/Units 06:52 WBC 9.2 (4.3-11.1) K/mcL Hgb 9.8 L (11.5-15.4) g/dL Hct 30.5 L (35.3-44.9) % Plt Count 264 (140-400) K/mcL Neutrophils # 5.3 (1.6-8.9) K/mcL BMP 01/28/17 06:52 Sodium 138 Potassium 4.4 Chloride 105 Carbon Dioxide 19 BUN 26 H D Creatinine 1.49 H Glucose 148 H Calcium 9.0 - ABG Interpretation ABG results: PT/INR, D-dimer PT 11.9 Seconds (9.4-12.1) 01/26/17 05:25 - VTE Reasons for not Prescribing Prophylaxis: Treatment not Indicated - Low risk for VTE Consult Discharge Plan - Plan Referrals: Francoise Marcum, INSULATOR TECHNICIAN [Primary Care Provider] -
[2017-01-29] MEDS: Clindamycin 600 MG/50 ML 600 MG/50 ML IV.SOLN IVPB SCH ×2 (00:15→09:54)
[2017-01-29] MEDS: *HR* Enoxaparin 40 MG/0.4 ML SYRINGE SQ SCH (05:14)
[2017-01-29 05:47] LABS: Hemoglobin 10.3 g/dL (11.5-15.4); Mean Corpuscular HGB Conc 32.2 g/dL (31.6-35.5); Mean Corpuscular Hemoglobin 29.1 pg (28.0-33.3); Mean Corpuscular Volume 90.4 fL (83.0-100.0); Mean Platelet Volume 10.2 fL (9.4-12.4); Platelet Count 294 K/mcL (140-400); Red Blood Count 3.54 M/mcL (3.82-4.97); Red Cell Distribution Width 14.4 % (11.5-14.5)
[2017-01-29 06:03] LABS: Calcium 9.4 mg/dL (8.6-10.8); Potassium 4.4 mEq/L (3.5-4.5)
[2017-01-29] MEDS: 0.9 % Sodium Chloride 1,000 ML IVC SCH (08:52)
[2017-01-29] MEDS: Insulin LISPRO 300 UNITS/3 ML VIAL SQ SCH ×2 (08:53→12:45)
[2017-01-29] MEDS ORDERED: Furosemide 40 MG/4 ML VIAL IVP SCH (09:00)
[2017-01-29] MEDS: Nystatin POWDER 30 GM BOTTLE TP SCH (09:54)
[2017-01-29] MEDS: *HR* GlipiZIDE 5 MG TABLET PO SCH (09:54)
[2017-01-29] MEDS: Metoprolol 100 MG TABLET PO SCH (09:54)
[2017-01-29] MEDS: Famotidine 20 MG TABLET PO SCH (09:54)
[2017-01-29] MEDS: Vitamin B Complex/Vit C/Vit E 1 EACH TABLET PO SCH (09:54)
[2017-01-29] MEDS: Lisinopril 20 MG TABLET PO SCH (09:54)
[2017-01-29] MEDS: (Combigan 0.2%-0.5% Eye) OP SCH (09:55)
--- NOTE | 2017-01-29 11:19 | Internal Med Progress Note ---
Date of Encounter: 01/29/17 Time of Encounter: 11:16 - Assessment and plan (1) Cellulitis of left lower extremity Current Visit: Yes Status: Acute Assessment and plan: Continue cellulitis of the left lower extremity as well as chronic venous stasis changes. White count is normalized, fever has defervesced and it is definitely improved. However I would like to see it be better before sending her home. Her severe swelling is contributing to this. The family state that she is having some falling episodes prior to admission and I would like to have PT and OT evaluate her for safety of her ADLs before discharge. I have recommended swing bed evaluation and transfer. I have spoken to Arelis Martinez the power of trade mark attorney and caregiver as well as social worker assistant. (2) Possible urinary tract infection Current Visit: No Status: Ruled-out (3) Diabetes mellitus Current Visit: Yes Status: Chronic Assessment and plan: Diabetes is under fair control. Qualifiers: Diabetes mellitus type: type 2 Diabetes mellitus complication status: with kidney complications Diabetes mellitus complication detail: with chronic kidney disease Diabetes mellitus salvage determiner insulin use: without prison use Chronic kidney disease stage: stage 3 (moderate) Qualified Code(s): E11.22 - Type 2 diabetes mellitus with diabetic chronic kidney disease; N18.3 - Chronic kidney disease, stage 3 (moderate) (4) Hypertension Current Visit: Yes Status: Chronic Assessment and plan: Blood pressures are under good control. Qualifiers: Hypertension type: essential hypertension Qualified Code(s): I10 - Essential (primary) hypertension (5) Chronic kidney disease Current Visit: Yes Status: Acute Assessment and plan: Patient has chronic kidney disease with recent elevating creatinine because of diuresis. We will need to continue to follow. Qualifiers: Chronic kidney disease stage: stage 3 (moderate) Qualified Code(s): N18.3 - Chronic kidney disease, stage 3 (moderate) (6) Obesity Current Visit: Yes Status: Chronic Qualifiers: Obesity type: unspecified obesity type Obesity classification: unspecified obesity classification Serious obesity comorbidity presence: without serious comorbidity Qualified Code(s): E66.9 - Obesity, unspecified (7) Mental handicap Current Visit: Yes Status: Chronic (8) DVT prophylaxis Current Visit: Yes Status: Acute - Subjective Interval history: Patient reports that she feels like she is getting better. She denies any chest pain or palpitations. She does not have severe pain in lower extremities. She thinks her lower extremities are about a swollen as usual, caregiver says otherwise. She denies any fever or chills. When I spoke to Arelis the caregiver and guardian by phone, she told me that Carrie has been weak at home and has been falling before she came to the hospital. I talked to her about possibility of swing bed for some physical therapy prior to going home in addition to longer antibiotic use. - Constitutional Vitals: Temp Pulse Resp BP Pulse Ox 98.2 F 99 18 166/89 97 01/29/17 11:03 01/29/17 11:03 01/29/17 11:03 01/29/17 11:03 01/29/17 11:03 General appearance: Present: A&O X 3, no acute distress, obese, answers questions appropriately - Respiratory Respiratory exam: Present: CTAB - Cardiovascular Cardiovascular exam: Present: RRR, +S1, +S2. Absent: systolic murmur - GI/Abdominal GI/Abdominal exam: Present: soft (Limited evaluation because of her obesity). Absent: tenderness - Extremities Exam Extremities exam: Absent: calf tenderness, tenderness Additional comments: Severe edema of the lower extremities including the dorsum of both feet. The left is worse than the right. The right tibial area has continued hyperpigmentation and erythema in a localized area of about 8 cm. The left lower extremity continues with the confluent redness of about three quarters of the tibial region with localizing very erythematous area in the mid tibial area which is about 8 or 10 cm in diameter. There are no open areas yet. She does have telangiectasia and petechial type changes in the posterior left calf. The left great toe is still in sterile dressing from previous podiatry surgery for ingrown toenails. No redness or tenderness at that site. Internal Medicine: Result - Labs CBC & Chem 7: 01/29/17 04:58 01/29/17 04:58 Labs: Short CBC 01/29/17 Range/Units 04:58 WBC 8.9 (4.3-11.1) K/mcL Hgb 10.3 L (11.5-15.4) g/dL Hct 32.0 L (35.3-44.9) % Plt Count 294 (140-400) K/mcL BMP 01/29/17 04:58 Sodium 140 Potassium 4.4 Chloride 105 Carbon Dioxide 21 BUN 25 H Creatinine 1.45 H Glucose 98 Calcium 9.4 Labs have been reviewed. White blood cell count is now normal. Hemoglobin is a bit better than yesterday, dropped from her admission though. Creatinine is staying a bit elevated. - ABG Interpretation ABG results: PT/INR, D-dimer PT 11.9 Seconds (9.4-12.1) 01/26/17 05:25 - VTE Reasons for not Prescribing Prophylaxis: Treatment not Indicated - Low risk for VTE Consult Discharge Plan - Plan Referrals: Francoise Marcum, WWE WRESTLER [Primary Care Provider] -
--- NOTE | 2017-01-29 12:47 | Venous Imaging Report ---
LE Venous Duplex Patient Name:Carrie Marin Order Number:[id number] Procedure Date:01/27/2017 Date:9Age:66 yrs Gender:Female Location:[facility] Room #: 116 [place] Attendant:Katia Rondon RVT Referring MD:Virgil Pacheco MD tile ditcher:Francoise Marcum, LARD RENDERER Reading MD:Bryce Au MD , FACS Primary Indications:lower extremity swelling bilateral Secondary Indications: Risk Factors Yes/No Hx of DVT No Impressions: Bilateral lower extremity: normal superficial and deep exam. Venous Flow was pulsatile. Calf vein imaging limited by edema. Recommendations: Critical findings reported to Nurse in person by Katia Rondon RVT. Findings Venous Duplex Results: Right: The right distal iliac demonstrates a compressible vein. Flow was pulsatile and it did augment. The right common femoral demonstrates a compressible vein. Flow was pulsatile and it did augment. The right superficial femoral demonstrates a compressible vein. Flow was pulsatile and it did augment. The right popliteal demonstrates a compressible vein. Flow was pulsatile and it did augment. The right great saphenous demonstrates a compressible vein. Flow was pulsatile and it did augment. The right lesser saphenous demonstrates a compressible vein. Flow was pulsatile and it did augment. The right posterior tibial and right peroneal veins were not assessed. Left: The left distal iliac demonstrates a compressible vein. Flow was pulsatile and it did augment. The left common femoral demonstrates a compressible vein. Flow was pulsatile and it did augment. The left superficial femoral demonstrates a compressible vein. Flow was pulsatile and it did augment. The left popliteal demonstrates a compressible vein. Flow was pulsatile and it did augment. The left great saphenous demonstrates a compressible vein. Flow was pulsatile and it did augment. The left lesser saphenous demonstrates a compressible vein. Flow was pulsatile and it did augment. The left posterior tibial and left peroneal veins were not assessed. Prior Study: No prior study available for comparison. Lower Extremity Venous Duplex Side Vein Compress Spontaneous Flow Augment Diameter (cm) Depth (cm) Right Distal Iliac Normal Yes Pulsatile Yes Right Common Femoral Normal Yes Pulsatile Yes Right Superficial Femoral Normal Yes Pulsatile Yes Right Popliteal Normal Yes Pulsatile Yes Right Great Saphenous Normal Yes Pulsatile Yes Right Lesser Saphenous Normal Yes Pulsatile Yes Left Distal Iliac Normal Yes Pulsatile Yes Left Common Femoral Normal Yes Pulsatile Yes Left Superficial Femoral Normal Yes Pulsatile Yes Left Popliteal Normal Yes Pulsatile Yes Left Great Saphenous Normal Yes Pulsatile Yes Left Lesser Saphenous Normal Yes Pulsatile Yes Right Posterior Tibial Right Peroneal Left Posterior Tibial Left Peroneal Updated by Bryce Au MD, FACS on 01/29/2017 12:42:04 PM Bryce Au MD electronically signed on 01/29/2017 12:42:18 PM with status of Final
[2017-01-29 16:13] VITALS: BP 142/73
--- NOTE | 2017-02-02 10:49 | Discharge Summary ---
Date of Encounter: 01/29/17 Time of Encounter: 10:00 - Discharge Diagnosis (1) Cellulitis of left lower extremity Priority: Primary Status: Acute Comments: Patient was admitted via the emergency room with a history of not feeling well, fever, leukocytosis, left lower extremity cellulitis and possible urinary tract infection. She is placed on ciprofloxacin and clindamycin. Her fever defervesced, white blood count was normalized, and redness/cellulitis improved in the left lower extremity. I felt that she still needed longer antibiotic treatment intravenously as well as evaluation by PT and OT before returning home to see if she can resume her ADLs. She was transferred into a swing bed. Please see the next discharge note (2) Possible urinary tract infection Priority: Secondary Status: Ruled-out Comments: On admission her urine looked infected. Culture grew normal shaq/mixed bacteria. Likely source of infection with the cellulitis which improved with the antibiotics. (3) Diabetes mellitus Priority: Secondary Status: Chronic Comments: Chronic history of diabetes which is been under good control. Her sugars during this hospital stay have been adequately controlled. No changes in her chronic medication were made. Qualifiers: Diabetes mellitus type: type 2 Diabetes mellitus complication status: with kidney complications Diabetes mellitus complication detail: with chronic kidney disease Diabetes mellitus dedicated intermodal truck driver insulin use: without dedicated intermodal truck driver use Chronic kidney disease stage: stage 3 (moderate) Qualified Code(s): E11.22 - Type 2 diabetes mellitus with diabetic chronic kidney disease; N18.3 - Chronic kidney disease, stage 3 (moderate) (4) Hypertension Priority: Secondary Status: Chronic Comments: Chronic history of hypertension. Blood pressures remained under relatively good control. Chronic medication was continued. Qualifiers: Hypertension type: essential hypertension Qualified Code(s): I10 - Essential (primary) hypertension (5) Chronic kidney disease Priority: Secondary Status: Acute Comments: History chronic kidney disease. Creatinine worsened a bit with IV Lasix for diuresis and with the infection. It did then stabilize. We will continue to follow. Qualifiers: Chronic kidney disease stage: stage 3 (moderate) Qualified Code(s): N18.3 - Chronic kidney disease, stage 3 (moderate) (6) Obesity Priority: Secondary Status: Chronic Qualifiers: Obesity type: unspecified obesity type Obesity classification: unspecified obesity classification Serious obesity comorbidity presence: without serious comorbidity Qualified Code(s): E66.9 - Obesity, unspecified (7) Mental handicap Priority: Secondary Status: Chronic Comments: She lives with her sister in a mobile home. She has a caregiver 5 days per week for several hours per day. Her power of tax attorney/guardian lives nearby. (8) DVT prophylaxis Priority: Secondary Status: Inactive - Discharge Medications Home Medications: Allopurinol [Zyloprim] 300 mg PO DAILY 09/30/16 [History] Brimonidine Tartrate/Timolol [Combigan 0.2%-0.5% Eye Drops] 5 ml OP BID [History] Clotrimazole 1% CRM [Lotrimin 1%] 1 appl TP BID 09/30/16 [History] Enalapril Maleate [Vasotec] 20 mg PO BID 09/30/16 [History] Furosemide [Lasix] 40 mg PO BID 09/30/16 [History] Latanoprost [Xalatan] 2.5 ml OP HS 09/30/16 [History] Lovastatin [Altoprev] 40 mg PO DAILY 09/30/16 [History] Metoprolol [Lopressor] 100 mg PO DAILY 09/30/16 [History] Nystatin POWDER [Nystop] 1 appl TP TID 09/30/16 [History] Potassium Chloride [K-Tab ER] 20 meq PO BID 09/30/16 [History] Ranitidine HCl [Zantac] 300 mg PO DAILY 09/30/16 [History] Vitamin B Complex 1 each PO DAILY 09/30/16 [History] amLODIPine [Norvasc] 5 mg PO DAILY 09/30/16 [History] glipiZIDE [Glucotrol] 5 mg PO BIDWM 09/30/16 [History] Clindamycin [Cleocin] 600 mg PO TID #7 mg 02/01/17 [Rx] Allergies/Adverse Reactions: Allergies No Known Allergies Allergy (Verified 01/25/17 16:07) Date of admission: 01/25/17 23:41 Primary care physician: Francoise Marcum CNP Discharging clinician: Virgil Pacheco Anticipated date of discharge: 01/29/17 - Patient Status Disposition: Transfer Hospital Swing Bed Condition: Fair Functional capacity at discharge: uses cane/walker Overall status at discharge: patient is not back to baseline - Discharge Instructions Follow Up With: Marcum,Francoise L, [employer] [Primary Care Provider] - Interval History: Please see the progress note for this day. Hospital course: Ms. Marin is a 66 year old female who is admitted with cellulitis of left lower extremity. Please see the above diagnoses. - Time Spent with Patient Total time spent providing and/or coordinating discharge services: - Constitutional Vitals: Temp Pulse Resp BP Pulse Ox 97.6 F 79 16 142/73 97 01/29/17 16:00 01/29/17 16:00 01/29/17 16:00 01/29/17 16:00 01/29/17 16:00 General appearance: Present: A&O X 3, no acute distress, obese, answers questions appropriately - Respiratory Respiratory exam: Present: CTAB - Cardiovascular Cardiovascular exam: Present: RRR, +S1, +S2 - Extremities Exam Additional comments: Continued cellulitis of left lower extremity. Please see the progress note. - VTE Reasons for not Prescribing Prophylaxis: Treatment not Indicated - Low risk for VTE
== END 2017-01-29 16:23 | disposition other institution (70) | DRG 638 ==
LOC: EMEROOGRE 16:00 → INPGRE 16:00
PROVIDERS: ADMIT Family Medicine; ATTEND Family Medicine

== ENCOUNTER 2017-01-29 16:04 | Inpatient (IN) ==
[2017-01-29] MEDS ORDERED: Dextrose Gel 15 GM PO PRN ×2 (17:06)
[2017-01-29] MEDS ORDERED: *HR* Dextrose 50 % in Water (Syg) 50 ML SYRINGE IVP PRN (17:06)
[2017-01-29] MEDS ORDERED: D5% in Water 1,000 ML IVC PRN (17:06)
[2017-01-29] MEDS ORDERED: Acetaminophen 325 MG TABLET PO PRN (17:09)
[2017-01-29] MEDS ORDERED: Clindamycin 600 MG in D5% in Water 50 ML IVPB SCH (17:30)
[2017-01-29] MEDS: Insulin LISPRO 300 UNITS/3 ML VIAL SQ SCH (21:15)
[2017-01-29] MEDS: Latanoprost 2.5 ML BOTTLE BOTH EYES SCH (21:17)
[2017-01-29] MEDS: Clindamycin 600 MG/50 ML 600 MG/50 ML IV.SOLN IVPB SCH (21:17)
[2017-01-29] MEDS: Nystatin POWDER 30 GM BOTTLE TP SCH (21:18)
[2017-01-29] MEDS: TIMOLOL OP SCH (21:18)
[2017-01-29] MEDS: BRIMONIDINE TARTRATE OP SCH (21:18)
[2017-01-29] MEDS: Lisinopril 20 MG TABLET PO SCH (21:18)
[2017-01-30] MEDS: Clindamycin 600 MG/50 ML 600 MG/50 ML IV.SOLN IVPB SCH ×3 (03:05→18:31)
[2017-01-30] MEDS: *HR* Enoxaparin 40 MG/0.4 ML SYRINGE SQ SCH (06:11)
[2017-01-30] MEDS: Famotidine 20 MG TABLET PO SCH (06:12)
--- NOTE | 2017-01-30 08:30 | Internal Med History&Physical ---
Date of Encounter: 01/30/17 Time of Encounter: 08:00 Assessment and Plan (1) Physical deconditioning Current visit: Yes Status: Acute This morning while I was seeing her she needed assistance using a bedside commode. I don't she's ready to go home as far as her ability to safely ambulate , continue the bathroom, etc. Physical therapy will see her today. (2) Cellulitis of left lower extremity Current visit: No Status: Acute Improving. Continue Cipro and clindamycin. (3) Diabetes mellitus Current visit: No Status: Chronic Fingers to glucose yesterday 153 in the afternoon. We can continue her glipizide. She seems to be tolerating this well. Qualifiers: Diabetes mellitus type: type 2 Diabetes mellitus complication status: with kidney complications Diabetes mellitus complication detail: with chronic kidney disease Diabetes mellitus senior care insulin use: without senior care use Chronic kidney disease stage: stage 3 (moderate) Qualified Code(s): E11.22 - Type 2 diabetes mellitus with diabetic chronic kidney disease; N18.3 - Chronic kidney disease, stage 3 (moderate) (4) Hypertension Current visit: No Status: Chronic At goal today her current medications. Qualifiers: Hypertension type: essential hypertension Qualified Code(s): I10 - Essential (primary) hypertension (5) Chronic kidney disease Current visit: No Status: Acute Creatinine is 1.45 which is pretty much at her baseline. We'll watch her by mouth intake. I think it's okay to continue her lisinopril. Qualifiers: Chronic kidney disease stage: stage 3 (moderate) Qualified Code(s): N18.3 - Chronic kidney disease, stage 3 (moderate) Internal Medicine - H&P: HPI Chief complaint: Cellulitis of left lower extremity. Transferred to swing bed status yesterd Plans for Post Hospital Care: Home History of present illness: Ms. Marin is a 66 year old female who was admitted to the inpatient service here at [facility] on 01/25/17 with left lower extremity cellulitis. She had a preceding left great ingrown toenail infection that may have been the source of this infection. She was febrile and noted to have an elevated white count. Venous ultrasound to rule out DVT was negative. She was treated in the hospital with Cipro and clindamycin. She has shown good improvement in the hospital with marked decrease in redness. Her white count came down. He lives at home alone. She says there is a lady down the street who comes in visits her and helps her out does not there 24 7. She was transferred to swing bed status for continuing IV treatment and physical therapy for functional disability with the goal of getting her home back to independent living. She had been having some falls at home caregiver. Past Med Surg Social Fam HX - Past Medical History Source: patient, old records reviewed Medical history: arthritis, diabetes, glaucoma, hyperlipidemia, hypertension, other (Gout, mental handicap) Psychiatric history: other (Mental handicap) - Past Surgical History Surgical History: appendectomy, cholecystectomy, hysterectomy, other (All of her teeth have been removed) - Social History Smoking Status: Never smoker Smokeless Tobacco Status: No Alcohol use: none Drug use: none - Family History Mother Adopted: No Living Status: (Cancer) Father Living Status: (Dropsy, heart disease) Brother Living Status: Sister Living Status: Still Living Hx Family Neurologic Disorders: Yes (History of mental handicap and lives with this patient) Internal Medicine - H&P: Meds Allopurinol [Zyloprim] 300 mg PO DAILY 09/30/16 [History] Brimonidine Tartrate/Timolol [Combigan Eye Drops] 5 ml OP BID 09/30/16 [History] Clotrimazole 1% CRM [Lotrimin 1%] 1 appl TP BID 09/30/16 [History] Enalapril Maleate [Vasotec] 20 mg PO BID 09/30/16 [History] Furosemide [Lasix] 40 mg PO BID 09/30/16 [History] Latanoprost [Xalatan] 2.5 ml OP HS 09/30/16 [History] Lovastatin [Altoprev] 40 mg PO DAILY 09/30/16 [History] Metoprolol [Lopressor] 100 mg PO DAILY 09/30/16 [History] Nystatin POWDER [Nystop] 1 appl TP TID 09/30/16 [History] Potassium Chloride [K-Tab ER] 20 meq PO BID 09/30/16 [History] Ranitidine HCl [Zantac] 300 mg PO DAILY 09/30/16 [History] Vitamin B Complex 1 each PO DAILY 09/30/16 [History] amLODIPine [Norvasc] 5 mg PO DAILY 09/30/16 [History] glipiZIDE [Glucotrol] 5 mg PO BIDWM 09/30/16 [History] Allergies No Known Allergies Allergy (Verified 01/25/17 16:07) All Systems PM: A 10-system review of systems was performed and is negative for pertinent findings except as documented above in the HPI. - Constitutional Constitutional: as per HPI, fever(s), falls, weakness - EENT Eyes: no blurry vision, no change in vision Ears: no decreased hearing Nose, mouth and throat: no hoarseness, no sore throat - Breasts Breasts: no pain - Cardiovascular Cardiovascular ROS IM: edema, no chest pain Additional comments: She states she feels her leg edema is pretty close to her baseline she's not real convincing to me that she is certain of this. - Respiratory Respiratory: no cough, no dyspnea - Gastrointestinal Gastrointestinal: no abdominal pain, no change in bowel habits, no constipation - Genitourinary Genitourinary: no difficulty urinating Menstruation: amenorrhea, post menopausal - Musculoskeletal Musculoskeletal ROS IM: no arthralgias, no joint swelling - Integumentary Integumentary IM: rash Additional comments: She has a chronic mild rash on her lower extremities. - Neurological Neurological ROS: abnormal gait, frequent falls Additional comments: She uses a walker at home. - Psychiatric Psychiatric: no depression - Endocrine Endocrine IM: no polyuria - Hematologic/Lymphatic Hematologic/Lymphatic: no easy bleeding - Allergic/Immunologic Allergic/Immunologic: no wheezing - Constitutional Vitals: Temp Pulse Resp BP Pulse Ox 98.1 F 85 18 106/60 97 01/30/17 04:00 01/30/17 04:00 01/30/17 04:00 01/30/17 04:00 01/30/17 04:00 General appearance: Present: cooperative, morbidly obese, pleasant, answers questions appropriately - Head Head exam: Present: atraumatic, normocephalic - Eye Eye exam: Present: PERRL, conjuntiva pink, sclera anicteric. Absent: conjunctival injection Pupils: Present: PERRL - Neck Neck exam general surgery: Present: supple, trachea midline. Absent: lymphadenopathy - Respiratory Respiratory exam: Present: CTAB. Absent: accessory muscle use, rales, rhonchi, wheezes - Cardiovascular Cardiovascular exam: Present: RRR, +S1, +S2. Absent: diastolic murmur, gallop, rubs, systolic murmur - GI/Abdominal GI/Abdominal exam: Present: normal bowel sounds, soft, no peritoneal signs. Absent: distended, tenderness - Extremities Exam Extremities exam: Present: pedal edema, warm. Absent: calf tenderness, cyanotic , tenderness Additional comments: She has mild to moderate redness over the left lower bartlett area. Per Dr. Pacheco's report to me yesterday that is much improved overall. He still has some redness scattered rash posterior left calf. There is no skin breakdown. There is no warmth or tenderness. She has prominent pitting edema bilaterally below the knees down. She says this is her usual baseline. There is some general thickening of the skin probably from chronic venous stasis. Her left great toenail it's healed nicely. The bandage off and don't think she needs covered any more. There is no drainage or tenderness. - VTE Deep Vein Thrombosis/Pulmonary Embolism Present on Admission: No
[2017-01-30] MEDS: Insulin LISPRO 300 UNITS/3 ML VIAL SQ SCH ×4 (08:53→23:26)
[2017-01-30] MEDS: Furosemide 40 MG/4 ML VIAL IVP SCH (09:08)
[2017-01-30] MEDS: Lisinopril 20 MG TABLET PO SCH ×2 (09:08→23:28)
[2017-01-30] MEDS: Metoprolol 100 MG TABLET PO SCH (09:08)
[2017-01-30] MEDS: *HR* GlipiZIDE 5 MG TABLET PO SCH ×2 (09:08→18:31)
[2017-01-30] MEDS: Vitamin B Complex/Vit C/Vit E 1 EACH TABLET PO SCH (09:08)
[2017-01-30] MEDS: amLODIPine 5 MG TABLET PO SCH (09:09)
[2017-01-30] MEDS: BRIMONIDINE TARTRATE OP SCH ×2 (09:09→23:29)
[2017-01-30] MEDS: Nystatin POWDER 30 GM BOTTLE TP SCH ×3 (09:09→23:29)
[2017-01-30] MEDS: TIMOLOL OP SCH ×2 (09:09→23:29)
[2017-01-30] MEDS ORDERED: Clindamycin 600 MG in D5% in Water 50 ML IVPB SCH (17:10)
[2017-01-30] MEDS: Latanoprost 2.5 ML BOTTLE BOTH EYES SCH (23:29)
[2017-01-31] MEDS: Clindamycin 600 MG/50 ML 600 MG/50 ML IV.SOLN IVPB SCH ×2 (03:02→11:59)
[2017-01-31] MEDS: Famotidine 20 MG TABLET PO SCH (06:29)
[2017-01-31] MEDS: *HR* Enoxaparin 40 MG/0.4 ML SYRINGE SQ SCH (06:30)
[2017-01-31] MEDS: *HR* GlipiZIDE 5 MG TABLET PO SCH ×2 (08:11→16:37)
[2017-01-31] MEDS: Metoprolol 100 MG TABLET PO SCH (08:11)
--- NOTE | 2017-01-31 08:11 | Internal Med Progress Note ---
Date of Encounter: 01/31/17 Time of Encounter: 07:55 - Assessment and plan (1) Physical deconditioning Current Visit: Yes Status: Acute Assessment and plan: I spoke with physical therapist yesterday, she felt patient would benefit form a "short stay" for PT/OT. Patient getting around better. Will increase her ambulation today, likely discharge home tomorrow. I also spoke with occ therapy yesterday, agrees patient should be able to go home safely. (2) Cellulitis of left lower extremity Current Visit: No Status: Acute Assessment and plan: Functionally improved, exam not changed much form yesterday. Continues afebrile. Continue IV Cipro and clindamycin. (3) Diabetes mellitus Current Visit: No Status: Chronic Assessment and plan: Sugars 171, 134, 116. Continue as at present. Qualifiers: Diabetes mellitus type: type 2 Diabetes mellitus complication status: with kidney complications Diabetes mellitus complication detail: with chronic kidney disease Diabetes mellitus intermodal truck driver insulin use: without intermodal truck driver use Chronic kidney disease stage: stage 3 (moderate) Qualified Code(s): E11.22 - Type 2 diabetes mellitus with diabetic chronic kidney disease; N18.3 - Chronic kidney disease, stage 3 (moderate) (4) Hypertension Current Visit: No Status: Chronic Assessment and plan: at goal Qualifiers: Hypertension type: essential hypertension Qualified Code(s): I10 - Essential (primary) hypertension (5) Chronic kidney disease Current Visit: No Status: Acute Qualifiers: Chronic kidney disease stage: stage 3 (moderate) Qualified Code(s): N18.3 - Chronic kidney disease, stage 3 (moderate) - Time Spent With Patient 25 - 35 minutes - Subjective Interval history: No complaints today. Denies shortness of breath or chest pain. She says her ambulation has improved, not painful to bear weight on her leg. - Constitutional Vitals: Temp Pulse Resp BP Pulse Ox 97.5 F L 78 18 121/66 95 01/31/17 07:04 01/31/17 07:04 01/31/17 07:04 01/31/17 07:04 01/31/17 07:04 General appearance: Present: cooperative, morbidly obese, pleasant, no acute distress, answers questions appropriately - Respiratory Respiratory exam: Present: CTAB. Absent: accessory muscle use, rales, rhonchi, wheezes - Cardiovascular Cardiovascular exam: Present: RRR, +S1, +S2. Absent: diastolic murmur, gallop, rubs, systolic murmur - Extremities Exam Extremities exam: Present: pedal edema, warm, radial pulses palpable and symmetrical. Absent: calf tenderness, cyanotic, tenderness Additional comments: Redness in LLE is pretty much unchanged from yesterday. - VTE Deep Vein Thrombosis/Pulmonary Embolism Present on Admission: No Consult Discharge Plan - Plan Referrals: NONE,PCP [Primary Care Provider] -
[2017-01-31] MEDS: Lisinopril 20 MG TABLET PO SCH ×2 (08:12→23:27)
[2017-01-31] MEDS: Vitamin B Complex/Vit C/Vit E 1 EACH TABLET PO SCH (08:12)
[2017-01-31] MEDS: Furosemide 40 MG/4 ML VIAL IVP SCH (08:12)
[2017-01-31] MEDS: amLODIPine 5 MG TABLET PO SCH (08:12)
[2017-01-31] MEDS: BRIMONIDINE TARTRATE OP SCH ×2 (08:13→23:27)
[2017-01-31] MEDS: TIMOLOL OP SCH ×2 (08:13→23:27)
[2017-01-31] MEDS: Nystatin POWDER 30 GM BOTTLE TP SCH ×3 (08:13→23:27)
[2017-01-31] MEDS: Insulin LISPRO 300 UNITS/3 ML VIAL SQ SCH ×4 (08:13→23:27)
[2017-01-31] MEDS: Latanoprost 2.5 ML BOTTLE BOTH EYES SCH (23:28)
[2017-02-01 06:02] LABS: Basophils # 0.1 K/mcL (0.0-0.2); Basophils % 0.6 %; Eosinophils % 4.7 %; Lymphocytes # 2.8 K/mcL (0.6-4.6); Lymphocytes % 24.1 %; Mean Corpuscular HGB Conc 32.3 g/dL (31.6-35.5); Mean Corpuscular Hemoglobin 29.2 pg (28.0-33.3); Mean Corpuscular Volume 90.6 fL (83.0-100.0); Mean Platelet Volume 9.7 fL (9.4-12.4); Monocytes # 0.9 K/mcL (0.0-1.3); Monocytes % 7.9 %; Neutrophils # 6.8 K/mcL (1.6-8.9); Platelet Count 346 K/mcL (140-400); Red Blood Count 3.42 M/mcL (3.82-4.97); Red Cell Distribution Width 14.2 % (11.5-14.5); Segmented Neutrophils % 58.7 %
[2017-02-01 06:04] LABS: Eosinophils # 0.6 K/mcL (0.0-0.6)
[2017-02-01 06:14] LABS: Calcium 9.2 mg/dL (8.6-10.8); Potassium 4.8 mEq/L (3.5-4.5)
[2017-02-01] MEDS: *HR* Enoxaparin 40 MG/0.4 ML SYRINGE SQ SCH (06:43)
[2017-02-01] MEDS: Famotidine 20 MG TABLET PO SCH (06:43)
--- NOTE | 2017-02-01 07:16 | Discharge Summary ---
Date of Encounter: 02/01/17 Time of Encounter: 07:13 - Discharge Diagnosis (1) Cellulitis of left lower extremity Priority: Primary Status: Acute Comments: Patient was admitted with history of not feeling well, lethargy at home, swelling of left lower extremity and diagnoses having cellulitis. She had leukocytosis and fever. She had had ingrown toenail surgery on the left great toenail, whether that is the source of the cellulitis or not is uncertain. The foot and toe itself did not look infected. Please see the history and physical from admission details. She was placed on IV Cipro and IV clindamycin. Her fever defervesced, white blood cell count normalized, her blood cultures were negative. The redness improved dramatically. She was transferred to a swing bed and felt she would need a few more days of IV antibiotics as well as consultation for PT and OT prior to going home. Today her examination is improved. The redness in the posterior calf is now gone. She has had no fever. She is getting around well enough without needing further PT or OT. She is a caregiver at home 5 days per week and has guardian who lives close by. She lives with her sister. She will be sent home on 7 more days of clindamycin. She will follow up with her PCP Francoise Marcum CNP. (2) Diabetes mellitus Priority: Secondary Status: Chronic Comments: Chronic diabetes. Her A1c is under good control. No change in medication made. Sugars were adequately controlled. Qualifiers: Diabetes mellitus type: type 2 Diabetes mellitus complication status: with kidney complications Diabetes mellitus complication detail: with chronic kidney disease Diabetes mellitus longterm insulin use: without implementation consultant use Chronic kidney disease stage: stage 3 (moderate) Qualified Code(s): E11.22 - Type 2 diabetes mellitus with diabetic chronic kidney disease; N18.3 - Chronic kidney disease, stage 3 (moderate) (3) Hypertension Priority: Secondary Status: Chronic Comments: Chronic history of hypertension. Blood pressures are under good control. Qualifiers: Hypertension type: essential hypertension Qualified Code(s): I10 - Essential (primary) hypertension (4) Chronic kidney disease Priority: Secondary Status: Acute Comments: She had slight worsening of her chronic kidney disease with acute kidney injury likely from the infection. It improved. She does not need further intervention. Qualifiers: Chronic kidney disease stage: stage 3 (moderate) Qualified Code(s): N18.3 - Chronic kidney disease, stage 3 (moderate) (5) Obesity Priority: Secondary Status: Chronic Qualifiers: Obesity type: unspecified obesity type Obesity classification: unspecified obesity classification Serious obesity comorbidity presence: without serious comorbidity Qualified Code(s): E66.9 - Obesity, unspecified - Discharge Medications Prescriptions: Clindamycin [Cleocin] 600 mg PO TID #7 mg Home Medications: Allopurinol [Zyloprim] 300 mg PO DAILY 09/30/16 [History] Brimonidine Tartrate/Timolol [Combigan 0.2%-0.5% Eye Drops] 5 ml OP BID [History] Clotrimazole 1% CRM [Lotrimin 1%] 1 appl TP BID 09/30/16 [History] Enalapril Maleate [Vasotec] 20 mg PO BID 09/30/16 [History] Furosemide [Lasix] 40 mg PO BID 09/30/16 [History] Latanoprost [Xalatan] 2.5 ml OP HS 09/30/16 [History] Lovastatin [Altoprev] 40 mg PO DAILY 09/30/16 [History] Metoprolol [Lopressor] 100 mg PO DAILY 09/30/16 [History] Nystatin POWDER [Nystop] 1 appl TP TID 09/30/16 [History] Potassium Chloride [K-Tab ER] 20 meq PO BID 09/30/16 [History] Ranitidine HCl [Zantac] 300 mg PO DAILY 09/30/16 [History] Vitamin B Complex 1 each PO DAILY 09/30/16 [History] amLODIPine [Norvasc] 5 mg PO DAILY 09/30/16 [History] glipiZIDE [Glucotrol] 5 mg PO BIDWM 09/30/16 [History] Clindamycin [Cleocin] 600 mg PO TID #7 mg 02/01/17 [Rx] Allergies/Adverse Reactions: Allergies No Known Allergies Allergy (Verified 01/25/17 16:07) Procedures/tests Complete & Pending: Laboratory Results - last 24 hr 01/30/17 01/30/17 01/31/17 16:36 20:56 11:14 WBC RBC Hgb Hct MCV MCH MCHC RDW Plt Count MPV Immature Gran % Seg Neutrophils % Lymphocytes % Monocytes % Eosinophils % Basophils % Neutrophils # Lymphocytes # Monocytes # Eosinophils # Basophils # APTT Sodium Potassium Chloride Carbon Dioxide BUN Creatinine Est GFR ( Amer) Est GFR (Non-Af Amer) BUN/Creatinine Ratio Glucose POC Glucose 171 H 134 H 127 H Calculated Osmolality Calcium 01/31/17 01/31/17 02/01/17 16:34 20:34 05:00 WBC 11.6 H RBC 3.42 L Hgb 10.0 L Hct 31.0 L MCV 90.6 MCH 29.2 MCHC 32.3 RDW 14.2 Plt Count 346 MPV 9.7 Immature Gran % 4.0 Seg Neutrophils % 58.7 Lymphocytes % 24.1 Monocytes % 7.9 Eosinophils % 4.7 Basophils % 0.6 Neutrophils # 6.8 Lymphocytes # 2.8 Monocytes # 0.9 Eosinophils # 0.6 Basophils # 0.1 APTT Sodium Potassium Chloride Carbon Dioxide BUN Creatinine Est GFR ( Amer) Est GFR (Non-Af Amer) BUN/Creatinine Ratio Glucose POC Glucose 111 H 165 H Calculated Osmolality Calcium 02/01/17 02/01/17 05:00 05:00 WBC RBC Hgb Hct MCV MCH MCHC RDW Plt Count MPV Immature Gran % Seg Neutrophils % Lymphocytes % Monocytes % Eosinophils % Basophils % Neutrophils # Lymphocytes # Monocytes # Eosinophils # Basophils # APTT 30.4 Sodium 138 Potassium 4.8 H Chloride 106 Carbon Dioxide 18 L BUN 36 H Creatinine 1.71 H Est GFR ( Amer) 36 L Est GFR (Non-Af Amer) 30 L BUN/Creatinine Ratio 21 Glucose 103 H POC Glucose Calculated Osmolality 295 Calcium 9.2 Date of admission: 01/29/17 16:29 Primary care physician: Francoise Marcum CNP Consults: 01/29/17 16:47 Consult to Occupational Therapy [CONS] Routine Comment: Evaluate, develop and implement POC Reason for Consult: weakness Consult to Physical Medicine/Rehab [CONS] Routine Reason for Consult: swing pt admitted for weakness Call Completed: Yes Consult to Physical Therapy [CONS] Routine Comment: Evaluate, develop and implement POC Reason for Consult: weakness Consult to Recreational Therapy [CONS] Routine Comment: Evaluate, develop and implement POC Consult to Subpoena Server [CONS] Routine Reason for SW Consult: d/c planning Discharging clinician: Virgil Pacheco Anticipated date of discharge: 02/01/17 - Patient Status Disposition: Home, Self-Care Condition: Good Functional capacity at discharge: uses cane/walker Overall status at discharge: patient is progressing back to baseline - Discharge Instructions Instructions: Clindamycin (By mouth), Cellulitis (DC) Follow Up With: Francoise Marcum CNP [Advanced Practice Nurse] - 02/05/17 1:00 pm - Diet and Activity Activity: increase activity as tolerated Diet: diabetic diet, low fat, low cholesterol, low salt diet Interval History: Patient was transferred from acute bed to a swing bed with left lower from a cellulitis. She needed PT and OT consultation as well as continued IV and Bactrim for a few more days. She improved. Redness improved and left lower extremity particularly the calf. PT and OT thought is safe for her to go home. She will be discharged today. Hospital course: Ms. Marin is a 66 year old female with a history of diabetes, hypertension was admitted with left lower extremity cellulitis. Please see the diagnoses as above. - Time Spent with Patient Total time spent providing and/or coordinating discharge services: - Constitutional Vitals: Temp Pulse Resp BP Pulse Ox 97.8 F 86 15 147/77 95 02/01/17 04:00 02/01/17 04:00 02/01/17 04:00 02/01/17 04:00 02/01/17 04:00 General appearance: Present: cooperative, morbidly obese, pleasant, no acute distress, answers questions appropriately - Respiratory Respiratory exam: Present: CTAB - Cardiovascular Cardiovascular exam: Present: diastolic murmur, RRR, +S1, +S2 - GI/Abdominal GI/Abdominal exam: Present: no peritoneal signs. Absent: mass, tenderness - Extremities Exam Additional comments: Left lower extremity is much improved compared to 2 days ago. The generalized area of erythema is fading and diminishing in size. There is an area of about 8 cm which is shiny and thickened/indurated and red and near the mid tibial region. Small area of skin is starting to flake as it is receding. The dorsum of both feet are still very swollen chronically. Left great toenail, status post ingrown toenail surgery, is healing nicely and without infection. Right lower extremity shows an area of hyperpigmentation from chronic venous stasis in the lower mid tibial region which continues to improve. The skin is not hot or tender. No linear streaks. The left posterior calf which had reddened areas and hypervascular changes is almost completely cleared. There are no open areas/weeping on either lower extremities - VTE Deep Vein Thrombosis/Pulmonary Embolism Present on Admission: No
[2017-02-01 07:19] VITALS: BP 132/72
[2017-02-01] MEDS: Insulin LISPRO 300 UNITS/3 ML VIAL SQ SCH ×3 (08:00→16:01)
[2017-02-01] MEDS: Vitamin B Complex/Vit C/Vit E 1 EACH TABLET PO SCH (09:01)
[2017-02-01] MEDS: amLODIPine 5 MG TABLET PO SCH (09:02)
[2017-02-01] MEDS: BRIMONIDINE TARTRATE OP SCH (09:02)
[2017-02-01] MEDS: TIMOLOL OP SCH (09:02)
[2017-02-01] MEDS: Furosemide 40 MG/4 ML VIAL IVP SCH (09:03)
[2017-02-01] MEDS: *HR* GlipiZIDE 5 MG TABLET PO SCH ×2 (09:03→16:00)
[2017-02-01] MEDS: Metoprolol 100 MG TABLET PO SCH (09:03)
[2017-02-01] MEDS: Lisinopril 20 MG TABLET PO SCH (09:05)
[2017-02-01] MEDS: Nystatin POWDER 30 GM BOTTLE TP SCH ×2 (09:05→16:00)
== END 2017-02-01 16:40 | disposition home or self-care (01) | DRG 945 ==
LOC: INPGRE 16:29
PROVIDERS: ADMIT Family Medicine; ATTEND Family Medicine